=== PATIENT | female | born 1990 | race Caucasian/White ===

== ENCOUNTER → 2021-01-02 | Outpatient (CLI) | payer BC ==
--- NOTE | 2021-01-02 12:24 | XR ---
Right forearm HISTORY: Trauma, ecchymosis, pain 3 images for 2 views of the right forearm Bone mineralization, joint spaces and alignment are maintained. No evident elbow joint effusion. Ther e is soft tissue swelling present. IMPRESSION: No fracture or dislocation.
== END | disposition home or self-care (01) ==
LOC: RADXRMAIN 10:25
PROVIDERS: ATTEND Internal Medicine
DX: M79.631 Pain in right forearm (principal); S50.11XA Contusion of right forearm, initial encounter